=== PATIENT | male | born 1940 | race Caucasian/White ===

== ENCOUNTER 2018-08-03 06:42 | Day surgery (SDC) | payer MEDICARE, OTHER, SELFPAY ==
--- NOTE | 2018-08-02 15:19 | W.PIPPEYE ---
History of Present Illness Chief Complaint: Progressive decreased vision, right eye Narrative: The patient is a 78-year-old gentleman with history of non-exudative macular degeneration and cataracts who has noted progressive decreased vision in both eyes. 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 On examination he was noted to have significant bilateral nuclear and cortical cataracts as well as nonexudative macular degeneration. Best corrected visual acuity was 20/60 OD, 20/70 OS. The option of cataract surgery was offered to the patient and he wished to proceed, understanding that postoperative visual acuity will be limited by the presence of his pre-existing maculopathy. NOTE: The Chief Complaint, HPI, Past Medical History, Past Surgical History, Family History, Social History, Medications, and complete Ophthalmic Exam with detailed Assessment and Plan have already been documented in the patient's outpatient ophthalmic record and/or in the Primary Care Provider's pre-op history and physical, and are not covered again in detail here. [facility] Medical History Bipolar disorder CIRILO (obstructive sleep apnea) PTSD (post-traumatic stress disorder) Social History Smoking/Tobacco Use Status: Never Surgical History Colonoscopy - MAC (08/12/16) Meds Home Medications Medication Instructions Recorded Confirmed Type quetiapine [Seroquel] 100 mg PO HS 08/10/16 08/01/18 History lorazepam 2 tab PO .QAM, HS 10/02/17 08/01/18 History ropinirole 1 mg PO DAILY 08/01/18 08/01/18 History Allergies Allergy/AdvReac Type Severity Reaction Status Date / Time No Known Allergies Allergy Unverified 10/02/17 18:17 Exam OCULAR EXAM:: Visual acuity at distance: 20/60 OD, 20/70 OS Pupils: Normally reactive without afferent pupillary defect IOP: 16 OD 15 OS Extraocular Motility: Significant for an alternating exotropia Pertinent Slit Lamp Findings: Significant for pupils dilating to 7 mm OU. 3+ brunescent nuclear cataract is present each eye with 1+ cortical cataract. Dilated Funduscopic Examination: Disc cupping is 0.3 OU with ngozi-papillary atrophy. Both macula does show evidence of fine drusen with pigmentary clumping. Peripheral retina and vitreous is normal. BRIGHTNESS ACUITY TESTING (BAT):: Off 20/60, right eye Low: 20/200 Medium: 20/400 High: Less than 20/400 Assessment and Plan (1) Cortical cataract of right eye: Current visit: No Status: Acute Assessment: Visually significant cataract, right eye. Plan: Cataract extraction with intraocular lens implantation, right eye (2) Nuclear sclerotic cataract of right eye: Current visit: No Status: Acute Assessment: Visually significant cataract, right eye. Plan: Cataract extraction with intraocular lens implantation, right eye Note: NOTE:: The patient also has a history of myopia, and desires to remain myopic after cataract surgery. He would like to be able to read without glasses after cataract surgery. The patient has also been made aware that postoperative visual acuity will likely be limited by the presence of pre-existing macular degeneration. The details of the planned surgery, including the risks, indications,limitations,expectations,outcome and possible complications were explained to the patient. The patient understands the complications including, but not limited to: infection, hemorrhage, posterior dislocation of the lens or nuclear fragments which may require the intervention of a vitreoretinal surgeon, possible loss of the eye, or from anesthetic complications. The patient has been made aware of the option of not having surgery, that vision following surgery may not be equal to that prior to surgery, and that the planned surgery may not achieve the intended results. Following this discussion, which the patient appeared to understand, the patient wishes to proceed with cataract surgery with lens implantation of the affected eye to improve and maximize vision.
--- NOTE | 2018-08-02 15:27 | POEE_ITS ---
History of Present Illness Chief Complaint: Progressive decreased vision, right eye Narrative: The patient is a 78-year-old gentleman with history of non-exudative macular degeneration and cataracts who has noted progressive decreased vision in both eyes. 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 On examination he was noted to have significant bilateral nuclear and cortical cataracts as well as nonexudative macular degeneration. Best corrected visual acuity was 20/60 OD, 20/70 OS. The option of cataract surgery was offered to the patient and he wished to proceed, understanding that postoperative visual acuity will be limited by the presence of his pre-existing maculopathy. NOTE: The Chief Complaint, HPI, Past Medical History, Past Surgical History, Family History, Social History, Medications, and complete Ophthalmic Exam with detailed Assessment and Plan have already been documented in the patient's outpatient ophthalmic record and/or in the Primary Care Provider's pre-op history and physical, and are not covered again in detail here. [facility] Medical History Bipolar disorder CIRILO (obstructive sleep apnea) PTSD (post-traumatic stress disorder) Social History Smoking/Tobacco Use Status: Never Surgical History Colonoscopy - MAC (08/12/16) Meds Home Medications Medication Instructions Recorded Confirmed Type quetiapine [Seroquel] 100 mg PO HS 08/10/16 08/01/18 History lorazepam 2 tab PO .QAM, HS 10/02/17 08/01/18 History ropinirole 1 mg PO DAILY 08/01/18 08/01/18 History Allergies Allergy/AdvReac Type Severity Reaction Status Date / Time No Known Allergies Allergy Unverified 10/02/17 18:17 Exam OCULAR EXAM:: Visual acuity at distance: 20/60 OD, 20/70 OS Pupils: Normally reactive without afferent pupillary defect IOP: 16 OD 15 OS Extraocular Motility: Significant for an alternating exotropia Pertinent Slit Lamp Findings: Significant for pupils dilating to 7 mm OU. 3+ brunescent nuclear cataract is present each eye with 1+ cortical cataract. Dilated Funduscopic Examination: Disc cupping is 0.3 OU with ngozi-papillary atrophy. Both macula does show evidence of fine drusen with pigmentary clumping. Peripheral retina and vitreous is normal. BRIGHTNESS ACUITY TESTING (BAT):: Off 20/60, right eye Low: 20/200 Medium: 20/400 High: Less than 20/400 Assessment and Plan (1) Cortical cataract of right eye: Current visit: No Status: Acute Assessment: Visually significant cataract, right eye. Plan: Cataract extraction with intraocular lens implantation, right eye (2) Nuclear sclerotic cataract of right eye: Current visit: No Status: Acute Assessment: Visually significant cataract, right eye. Plan: Cataract extraction with intraocular lens implantation, right eye Note: NOTE:: The patient also has a history of myopia, and desires to remain myopic after cataract surgery. He would like to be able to read without glasses after cataract surgery. The patient has also been made aware that postoperative visual acuity will likely be limited by the presence of pre-existing macular degeneration. The details of the planned surgery, including the risks, indications,limitations ,expectations,outcome and possible complications were explained to the patient. The patient understands the complications including, but not limited to: infection, hemorrhage, posterior dislocation of the lens or nuclear fragments which may require the intervention of a vitreoretinal surgeon, possible loss of the eye, or from anesthetic complications. The patient has been made aware of the option of not having surgery, that vision following surgery may not be equal to that prior to surgery, and that the planned surgery may not achieve the intended results. Following this discussion, which the patient appeared to understand, the patient wishes to proceed with cataract surgery with lens implantation of the affected eye to improve and maximize vision.
[2018-08-03 06:58] VITALS: BP 113/82; PULSE 82; RESP 16; TEMP 36.6; O2SAT 100
[2018-08-03] MEDS: Lidocaine 2% Jelly 6 ML SYR (08:18)
[2018-08-03] MEDS: Lidocaine 1% Pres-Free 5 ML VIAL (08:27)
[2018-08-03] MEDS: Balanced Salt Soln.-PLUS 500 ML BAG (08:27)
[2018-08-03] MEDS: Povidone-Iodine Ophth 30 ML BTL (08:44)
--- NOTE | 2018-08-03 08:50 | W.PM.DSUDISC ---
Discharge Plan Disposition Patient Disposition: HOME Condition: Good Discharge Details Reason For Visit: CATARACT OD Attending Provider: Seth Pratt Primary Care Provider: Sybil Carrera Home Meds and New Rx's Prescriptions: No Action quetiapine [Seroquel] 100 MG tablet 100 mg PO HS RF: 0 lorazepam 0.5 MG tablet 2 tab PO .QAM, HS RF: 0 ropinirole 1 mg Tablet 1 mg PO DAILY RF: 0 Discharge Instructions Stand Alone Forms: Post-op Topical Cataract, Lawanda Moreno (DSU) Activity:: Activity as Tolerated Remove Dressings/Wound Care:: Do Not Remove Shower/Bathe:: 48 hours Diet:: As Tolerated Discharge Orders Discharge Orders: Discharge Order (Routine); Ordered 08/03/18 Ordered By: Seth Pratt Discharge Data Discharge Date/Time-TO BE ENTERED AT DEPARTURE: 08/03/18 08:50 DS: Diagnosis Discharge Diagnosis (1) Cortical cataract of right eye: Status: Resolved (2) Nuclear sclerotic cataract of right eye: Status: Resolved
--- NOTE | 2018-08-03 16:30 | W.PM.OP ---
Date of service: 08/03/18 Operative Note Date of procedure: 08/03/18 Pre-op diagnosis: Cataract, right eye Post-op diagnosis: same Procedure: Cataract extraction using phacoemulsification with intraocular lens implant, right eye Surgeon: Seth Pratt Anesthesia: MAC and local (sub-tenon's anesthetic infiltration) Pathology: none sent Complications: None Patient was transported to: same day Patient's condition: stable Implants: Rohit and Rohit / [employer] Tecnis [id number] Indications: Painless progressive vision loss due to cataract, right eye Procedure Description: PREOPERATIVE DIAGNOSIS: Nuclear/cortical cataract, right eye, symptomatic POSTOPERATIVE DIAGNOSIS: Same OPERATION: Cataract extraction using phacoemulsification with posterior chamber intraocular lens implant, right eye. IOL: IOL Master Barber/Model: [employer] Tecnis ZCB00 IOL Power: +17.0 diopters IOL Serial Number: [id number] Optic Diameter: 6.0 mm Haptic/Overall Diameter: 13.0 mm PHACO INFO: [employer] [place] [employer] Vision System with OZil and Active Fluidics Cumulative Dispersed Energy (CDE): 18.33 seconds SURGEON: Seth Pratt MD, FLAVIO ANESTHESIA: Monitored Anesthesia Care (MAC), with local sub-tenon's anesthetic infiltration COMPLICATIONS: None SPECIMENS: None INDICATIONS FOR PROCEDURE: The patient is a 78 year old gentleman with history of nonexudative macular degeneration OU as well as myopia. He has developed significant bilateral nuclear cataracts along with cortical cataracts in both eyes. He desires cataract surgery and attempt to improve and maximize his vision, understanding that postoperative visual acuity will be limited by the presence of his pre-existing maculopathy. PROCEDURE: The correct surgical eye was identified and marked as the right eye and the pupil was dilated in the preoperative area using mydriatics, cycloplegics, and NSAIDS (except in aspirin allergic patients). The dilated pupil size was 7.0 mm. Oral sedation was administered in the form of an Imprimis MKO Melt (midazolam 3mg/ketamine 25mg/ondansetron 2mg). The patient was brought to the operating room where cardiopulmonary monitoring was instituted and surgical time-out was performed, confirming the correct operative eye and IOL power. Topical anesthesia was administered and ophthalmic povidone-iodine 5% was instilled into the conjunctival fornices. The ngozi-ocular area was prepped with Betadine 10% solution and draped in the usual sterile fashion for intraocular surgery. Steri-strips were used to cover the lashes and lid margins and an adhesive eye drape was placed. Care was taken to isolate the lashes and lid margins under the Steri-strips and adhesive eye drape. A lid speculum was placed between the lids of the operative eye and the Albertina-Allison operating microscope was swung into place. Cale scissors were then used to make a conjunctival buttonhole approximately 6mm posterior to the limbus in the inferonasal quadrant. Blunt dissection was carried out to expose bare sclera, and a blunt-tipped sub-tenon?s anesthesia cannula was introduced and passed posteriorly along the globe where non-preserved plain lidocaine was injected into posterior sub-Tenon?s space. A sideport knife was used to make a paracentesis port at the 7 o'clock position. Healon GV was used to fill the anterior chamber.. A 2.4mm keratome knife was used to create a half-thickness groove at the limbus and then to construct a three-plane near-clear corneal tunnel extending 2.0mm into clear cornea at the 10 o'clock position. A flap was raised on the anterior capsule and capsulorhexis forceps were used to complete a continuous curvilinear capsulorhexis of 5.0 mm. Balanced salt solution was then used to perform cortical cleaving hydrodissection and nuclear hydrodelineation until the lens could be freely rotated within the capsular bag. The lens nucleus was then disassembled and removed within the capsular bag and iris plane using phacoemulsification. Residual cortical material was removed using the 45-degree angled silicone I/A tip with 0.3mm port. The posterior capsule was carefully polished to remove as much residual lens epithelial cells as safely possible. The capsular bag was then inflated and the anterior chamber deepened with viscoelastic. The lens implant described above was inserted into the capsular bag using the [employer] [place] Injector. A Kuglen hook was used to dial the IOL into position. Residual viscoelastic was then removed using the I/A handpiece, the incisions were stromally hydrated, and the anterior chamber was reformed using BSS. . Then 0.4cc of moxifloxacin 1.5mg/ml were injected into the capsular bag and anterior chamber. The lens implant was noted to center nicely within the capsular bag. The incisions were checked with a Weck spear and found to be secure. Several drops of ophthalmic povidone-iodine 5% were then applied to the eye followed by two drops of topical antibiotic. A clear plastic eye shield was placed on the eye. The patient was then returned to Same Day Surgery in stable condition.
--- NOTE | 2018-08-03 16:33 | ROE_ITS ---
Date of service: 08/03/18 Operative Note Date of procedure: 08/03/18 Pre-op diagnosis: Cataract, right eye Post-op diagnosis: same Procedure: Cataract extraction using phacoemulsification with intraocular lens implant, right eye Surgeon: Seth Pratt Anesthesia: MAC and local (sub-tenon's anesthetic infiltration) Pathology: none sent Complications: None Patient was transported to: same day Patient's condition: stable Implants: Rohit and Rohit / [employer] Tecnis [id number] Indications: Painless progressive vision loss due to cataract, right eye Procedure Description: PREOPERATIVE DIAGNOSIS: Nuclear/cortical cataract, right eye, symptomatic POSTOPERATIVE DIAGNOSIS: Same OPERATION: Cataract extraction using phacoemulsification with posterior chamber intraocular lens implant, right eye. IOL: IOL School Occupational Therapist/Model: [employer] Tecnis ZCB00 IOL Power: +17.0 diopters IOL Serial Number: [id number] Optic Diameter: 6.0 mm Haptic/Overall Diameter: 13.0 mm PHACO INFO: [employer] Vision System with OZil and Active Fluidics Cumulative Dispersed Energy (CDE): 18.33 seconds SURGEON: Seth Pratt MD, FLAVIO ANESTHESIA: Monitored Anesthesia Care (MAC), with local sub-tenon's anesthetic infiltration COMPLICATIONS: None SPECIMENS: None INDICATIONS FOR PROCEDURE: The patient is a 78 year old gentleman with history of nonexudative macular degeneration OU as well as myopia. He has developed significant bilateral nuclear cataracts along with cortical cataracts in both eyes. He desires cataract surgery and attempt to improve and maximize his vision, understanding that postoperative visual acuity will be limited by the presence of his pre-existing maculopathy. PROCEDURE: The correct surgical eye was identified and marked as the right eye and the pupil was dilated in the preoperative area using mydriatics, cycloplegics, and NSAIDS (except in aspirin allergic patients). The dilated pupil size was 7.0 mm. Oral sedation was administered in the form of an Imprimis MKO Melt (midazolam 3mg/ketamine 25mg/ondansetron 2mg). The patient was brought to the operating room where cardiopulmonary monitoring was instituted and surgical time-out was performed, confirming the correct operative eye and IOL power. Topical anesthesia was administered and ophthalmic povidone-iodine 5% was instilled into the conjunctival fornices. The ngozi-ocular area was prepped with Betadine 10% solution and draped in the usual sterile fashion for intraocular surgery. Steri-strips were used to cover the lashes and lid margins and an adhesive eye drape was placed. Care was taken to isolate the lashes and lid margins under the Steri-strips and adhesive eye drape. A lid speculum was placed between the lids of the operative eye and the Albertina-Allison operating microscope was swung into place. Cale scissors were then used to make a conjunctival buttonhole approximately 6mm posterior to the limbus in the inferonasal quadrant. Blunt dissection was carried out to expose bare sclera, and a blunt-tipped sub-tenon? s anesthesia cannula was introduced and passed posteriorly along the globe where non-preserved plain lidocaine was injected into posterior sub-Tenon?s space. A sideport knife was used to make a paracentesis port at the 7 o'clock position. Healon GV was used to fill the anterior chamber.. A 2.4mm keratome knife was used to create a half-thickness groove at the limbus and then to construct a three-plane near-clear corneal tunnel extending 2.0mm into clear cornea at the 10 o'clock position. A flap was raised on the anterior capsule and capsulorhexis forceps were used to complete a continuous curvilinear capsulorhexis of 5.0 mm. Balanced salt solution was then used to perform cortical cleaving hydrodissection and nuclear hydrodelineation until the lens could be freely rotated within the capsular bag. The lens nucleus was then disassembled and removed within the capsular bag and iris plane using phacoemulsification. Residual cortical material was removed using the 45-degree angled silicone I/A tip with 0.3mm port. The posterior capsule was carefully polished to remove as much residual lens epithelial cells as safely possible. The capsular bag was then inflated and the anterior chamber deepened with viscoelastic. The lens implant described above was inserted into the capsular bag using the [employer] [place] Injector. A Kuglen hook was used to dial the IOL into position. Residual viscoelastic was then removed using the I/A handpiece, the incisions were stromally hydrated, and the anterior chamber was reformed using BSS. . Then 0.4cc of moxifloxacin 1.5mg/ml were injected into the capsular bag and anterior chamber. The lens implant was noted to center nicely within the capsular bag. The incisions were checked with a Weck spear and found to be secure. Several drops of ophthalmic povidone-iodine 5% were then applied to the eye followed by two drops of topical antibiotic. A clear plastic eye shield was placed on the eye. The patient was then returned to Same Day Surgery in stable condition.
== END 2018-08-03 09:15 | disposition home or self-care (01) ==
LOC: SUR 06:42
PROVIDERS: PCP Nurse Practitioner Family; Visit Provider Ophthalmology
PROC: (CPT 66984; principal; 2018-08-03 08:25)
DX: H25.11 Age-related nuclear cataract, right eye (principal); H25.011 Cortical age-related cataract, right eye
CPT/HCPCS: 66984; V2632

== ENCOUNTER 2018-08-17 06:44 | Day surgery (SDC) | payer MEDICARE, OTHER, SELFPAY ==
--- NOTE | 2018-08-16 07:37 | W.PIPPEYE ---
History of Present Illness Chief Complaint: Progressive decreased vision, left eye Narrative: Patient is a 78 year old gentleman who originally presented with complaints of progressive decreased vision in both eyes at both distance and near. He has a history of early macular degeneration in both eyes as well as a history of myopia. He was noted to have significant bilateral nuclear and cortical cataracts with visual acuity of 20/100 in each eye. The option of cataract surgery was offered to the patient and he wished to proceed. He desired to remain nearsighted after surgery so that he can continue to read without glasses. He underwent cataract surgery in the right eye on 07/03/2018. Postoperatively he has regained best corrected distance vision of 20/20 in the right eye with good near vision. He now presents for cataract surgery in the left eye. NOTE: The Chief Complaint, HPI, Past Medical History, Past Surgical History, Family History, Social History, Medications, and complete Ophthalmic Exam with detailed Assessment and Plan have already been documented in the patient's outpatient ophthalmic record and are not covered again in detail here. [facility] Medical History Bipolar disorder CIRILO (obstructive sleep apnea) PTSD (post-traumatic stress disorder) Social History Smoking/Tobacco Use Status: Never Surgical History Colonoscopy - MAC (08/12/16) Meds Home Medications Medication Instructions Recorded Confirmed Type quetiapine [Seroquel] 100 mg PO HS 08/10/16 08/03/18 History lorazepam 2 tab PO .QAM, HS 10/02/17 08/03/18 History ropinirole 1 mg PO DAILY 08/01/18 08/01/18 History Allergies Allergy/AdvReac Type Severity Reaction Status Date / Time No Known Allergies Allergy Unverified 08/03/18 06:56 Exam OCULAR EXAM:: Visual acuity at distance: Best corrected 20/20 right eye, 20/100 left eye Pupils: Pupils equal, round, and reactive without afferent pupillary defect IOP: 16 OD, 15 OS Extraocular Motility: Significant for an alternating exotropia Pertinent Slit Lamp Findings: Significant for a well-positioned PCIOL OD with clear posterior capsule. Pupils dilate to 7 mm OU. 3+ nuclear with 1+ cortical cataract is present OS. Dilated Funduscopic Examination: Disc cupping is 0.35 OU with ngozi-papillary atrophy. Both macula does show evidence of fine drusen and pigmentary clumping. Peripheral retina and vitreous is normal. BRIGHTNESS ACUITY TESTING (BAT):: Off left eye 20/100 Low: 20/200 Medium: 20/200 High: 20/400 Assessment and Plan (1) Cortical cataract of left eye: Current visit: No Status: Acute Assessment: Visually significant cataract, left eye. Plan: Cataract extraction with intraocular lens implantation, left eye (2) Nuclear sclerotic cataract of left eye: Current visit: No Status: Acute Assessment: Visually significant cataract, left eye. Plan: Cataract extraction with intraocular lens implantation, left eye (3) Age-related macular degeneration, dry, right eye: Current visit: No Status: Chronic (4) Age-related macular degeneration, dry, left eye: Current visit: No Status: Chronic Note: NOTE:: The details of the planned surgery, including the risks, indications,limitations,expectations,outcome and possible complications were explained to the patient. The patient understands the complications including, but not limited to: infection, hemorrhage, posterior dislocation of the lens or nuclear fragments which may require the intervention of a vitreoretinal surgeon, possible loss of the eye, or from anesthetic complications. The patient has been made aware of the option of not having surgery, that vision following surgery may not be equal to that prior to surgery, and that the planned surgery may not achieve the intended results. Following this discussion, which the patient appeared to understand, the patient wishes to proceed with cataract surgery with lens implantation of the affected eye to improve and maximize vision.
[2018-08-17 07:11] VITALS: BP 124/89; PULSE 77; RESP 16; TEMP 35.6; O2SAT 94
[2018-08-17] MEDS: Balanced Salt Soln.-PLUS 500 ML BAG (08:20)
[2018-08-17] MEDS: Povidone-Iodine Ophth 30 ML BTL (08:20)
[2018-08-17] MEDS: Lidocaine 1% Pres-Free 5 ML VIAL (08:20)
[2018-08-17] MEDS: Lidocaine 2% Jelly 6 ML SYR (08:20)
--- NOTE | 2018-08-17 08:54 | W.PM.DSUDISC ---
Discharge Plan Discharge Details Reason For Visit: CATARACT OS Attending Provider: Seth Pratt Primary Care Provider: Sybil Carrera Home Meds and New Rx's Prescriptions: No Action quetiapine [Seroquel] 100 MG tablet 50 mg PO HS RF: 0 lorazepam 0.5 MG tablet 2 tab PO .QAM, HS RF: 0 ropinirole 1 mg Tablet 1 mg PO DAILY RF: 0 Discharge Instructions Stand Alone Forms: Post-op Topical Cataract, Lawanda Moreno (DSU) DS: Diagnosis Discharge Diagnosis (1) Cortical cataract of left eye: Status: Resolved (2) Nuclear sclerotic cataract of left eye: Status: Resolved (3) Age-related macular degeneration, dry, right eye: Status: Chronic (4) Age-related macular degeneration, dry, left eye: Status: Chronic
--- NOTE | 2018-08-17 08:55 | W.PM.OP ---
Date of service: 08/17/18 Time of Service: 08:55 Operative Note DATE OF PROCEDURE: 08/17/18 PRE-OP DIAGNOSIS: Cataract, left eye POST-OP DIAGNOSIS: same PROCEDURE: Cataract extraction using phacoemulsification with intraocular lens implant, left eye SURGEON: Seth Pratt ANESTHESIA: MAC and local (sub-tenon's anesthetic infiltration) PATHOLOGY: none sent COMPLICATIONS: None Patient was transported to: same day Patient's condition: stable Implants: Rohit and Rohit / [employer] Tecnis [id number] Indications: Progressive decreased vision due to cataract, left eye Procedure Description: CATARACT SURGERY OPERATIVE REPORT PREOPERATIVE DIAGNOSIS: Nuclear/cortical cataract, left eye POSTOPERATIVE DIAGNOSIS: Same OPERATION: Cataract extraction using phacoemulsification with posterior chamber intraocular lens implant, left eye. IOL: IOL Petroleum Refinery Operator/Model: Rohit & Rohit / SAVANNA Tecnis [id number] IOL Power: +17.50 diopters IOL Serial Number: [id number] Optic Diameter: 6.0mm Haptic/Overall Diameter: 13.0mm PHACO INFO: JamesecoInsight Vision System with OZil and Active Fluidics Cumulative Dispersed Energy (CDE): 11.7 seconds SURGEON: Seth Pratt MD, FLAVIO ANESTHESIA: Monitored Anesthesia Care (MAC), with local sub-tenon's anesthetic infiltration COMPLICATIONS: None SPECIMENS: None INDICATIONS FOR PROCEDURE: The patient is a 78-year old gentleman with history of progressive decreased vision in both eyes who was noted to have dense bilateral nuclear and cortical cataracts. He also has a history of myopia and desires to remain myopic after cataract surgery. He also has macular degeneration in both eyes. He is Ardie undergone cataract surgery in the right eye and is doing well postoperatively. He now presents for cataract surgery in the left eye. PROCEDURE: The correct surgical eye was identified and marked as the left eye and the pupil was dilated in the preoperative area using mydriatics, cycloplegics, and NSAIDS (except in aspirin allergic patients). The dilated pupil size was 7.5mm. Oral sedation was administered in the form of an Imprimis MKO Melt (midazolam 3mg/ketamine 25mg/ondansetron 2mg). The patient was brought to the operating room where cardiopulmonary monitoring was instituted and surgical time-out was performed, confirming the correct operative eye and IOL power. Topical anesthesia was administered and ophthalmic povidone-iodine 5% was instilled into the conjunctival fornices. Lidocaine gel was applied to the cornea and the ngozi-ocular area was prepped with Betadine 10% solution and draped in the usual sterile fashion for intraocular surgery. Steri-strips were used to cover the lashes and lid margins and an adhesive eye drape was placed. Care was taken to isolate the lashes and lid margins under the Steri-strips and adhesive eye drape. A lid speculum was placed between the lids of the operative eye and the Albertina-Allison operating microscope was maneuvered into position. Cale scissors were then used to make a conjunctival buttonhole approximately 6mm posterior to the limbus in the inferonasal quadrant. Blunt dissection was carried out to expose bare sclera, and a blunt-tipped sub-tenon?s anesthesia cannula was introduced and passed posteriorly along the globe where non-preserved plain lidocaine was injected into posterior sub-Tenon?s space. A sideport knife was used to make a paracentesis port at the 12:00 postion and the anterior chamber was filled with Healon GV. A 2.4mm keratome knife was used to create a half-thickness groove at the limbus and then to construct a three-plane near-clear corneal tunnel extending 2.0mm into clear cornea at the 3:00 position. A flap was raised on the anterior capsule and capsulorhexis forceps were used to complete a continuous curvilinear capsulorhexis of 5.5mm. Balanced salt solution was then used to perform cortical cleaving hydrodissection and nuclear hydrodelineation until the lens could be freely rotated within the capsular bag. The lens nucleus was then disassembled and removed within the capsular bag and iris plane using phacoemulsification. Residual cortical material was removed using the 45-degree angled silicone I/A tip with 0.3mm port. The posterior capsule was carefully polished to remove as much residual lens epithelial cells as safely possible. The capsular bag was then inflated and the anterior chamber deepened with viscoelastic. The lens implant described above was inserted into the capsular bag using the SAVANNA [place] Injector. A Kuglen hook was used to dial the IOL into position. Residual viscoelastic was then removed first from posterior to the IOL, then from the anterior chamber using the I/A handpiece. The lens implant was noted to center nicely within the capsular bag. The incisions were stromally hydrated, and the anterior chamber was reformed using BSS. Then 0.4cc of moxifloxacin 1.5mg/ml were injected into the capsular bag and anterior chamber. The incisions were checked with a Weck spear and found to be secure. Several drops of ophthalmic povidone-iodine 5% were then applied to the eye followed by two drops of Imprimis combination moxifloxacin/dexamethasone solution. The drapes were removed and a clear plastic protective eye shield was placed over the eye. The patient was then returned to Same Day Surgery in stable condition.
--- NOTE | 2018-08-17 08:58 | ROE_ITS ---
Date of service: 08/17/18 Time of Service: 08:55 Operative Note DATE OF PROCEDURE: 08/17/18 PRE-OP DIAGNOSIS: Cataract, left eye POST-OP DIAGNOSIS: same PROCEDURE: Cataract extraction using phacoemulsification with intraocular lens implant, left eye SURGEON: Seth Pratt ANESTHESIA: MAC and local (sub-tenon's anesthetic infiltration) PATHOLOGY: none sent COMPLICATIONS: None Patient was transported to: same day Patient's condition: stable Implants: Rohit and Rohit / [employer] Tecnis [id number] Indications: Progressive decreased vision due to cataract, left eye Procedure Description: CATARACT SURGERY OPERATIVE REPORT PREOPERATIVE DIAGNOSIS: Nuclear/cortical cataract, left eye POSTOPERATIVE DIAGNOSIS: Same OPERATION: Cataract extraction using phacoemulsification with posterior chamber intraocular lens implant, left eye. IOL: IOL Machine Stonecutter/Model: Rohit & Rohit / SAVANNA Tecnis ZCB00 IOL Power: +17.50 diopters IOL Serial Number: [id number] Optic Diameter: 6.0mm Haptic/Overall Diameter: 13.0mm PHACO INFO: James[employer]igme Vision System with OZil and Active Fluidics Cumulative Dispersed Energy (CDE): 11.7 seconds SURGEON: Seth Pratt MD, FLAVIO ANESTHESIA: Monitored Anesthesia Care (MAC), with local sub-tenon's anesthetic infiltration COMPLICATIONS: None SPECIMENS: None INDICATIONS FOR PROCEDURE: The patient is a 78-year old gentleman with history of progressive decreased vision in both eyes who was noted to have dense bilateral nuclear and cortical cataracts. He also has a history of myopia and desires to remain myopic after cataract surgery. He also has macular degeneration in both eyes. He is Ardie undergone cataract surgery in the right eye and is doing well postoperatively. He now presents for cataract surgery in the left eye. PROCEDURE: The correct surgical eye was identified and marked as the left eye and the pupil was dilated in the preoperative area using mydriatics, cycloplegics, and NSAIDS (except in aspirin allergic patients). The dilated pupil size was 7.5mm. Oral sedation was administered in the form of an Imprimis MKO Melt (midazolam 3mg/ketamine 25mg/ondansetron 2mg). The patient was brought to the operating room where cardiopulmonary monitoring was instituted and surgical time-out was performed, confirming the correct operative eye and IOL power. Topical anesthesia was administered and ophthalmic povidone-iodine 5% was instilled into the conjunctival fornices. Lidocaine gel was applied to the cornea and the ngozi-ocular area was prepped with Betadine 10% solution and draped in the usual sterile fashion for intraocular surgery. Steri-strips were used to cover the lashes and lid margins and an adhesive eye drape was placed. Care was taken to isolate the lashes and lid margins under the Steri-strips and adhesive eye drape. A lid speculum was placed between the lids of the operative eye and the Albertina-Allison operating microscope was maneuvered into position. Cale scissors were then used to make a conjunctival buttonhole approximately 6mm posterior to the limbus in the inferonasal quadrant. Blunt dissection was carried out to expose bare sclera, and a blunt-tipped sub-tenon? s anesthesia cannula was introduced and passed posteriorly along the globe where non-preserved plain lidocaine was injected into posterior sub-Tenon?s space. A sideport knife was used to make a paracentesis port at the 12:00 postion and the anterior chamber was filled with Healon GV. A 2.4mm keratome knife was used to create a half-thickness groove at the limbus and then to construct a three-plane near-clear corneal tunnel extending 2.0mm into clear cornea at the 3:00 position. A flap was raised on the anterior capsule and capsulorhexis forceps were used to complete a continuous curvilinear capsulorhexis of 5.5mm. Balanced salt solution was then used to perform cortical cleaving hydrodissection and nuclear hydrodelineation until the lens could be freely rotated within the capsular bag. The lens nucleus was then disassembled and removed within the capsular bag and iris plane using phacoemulsification. Residual cortical material was removed using the 45-degree angled silicone I/A tip with 0.3mm port. The posterior capsule was carefully polished to remove as much residual lens epithelial cells as safely possible. The capsular bag was then inflated and the anterior chamber deepened with viscoelastic. The lens implant described above was inserted into the capsular bag using the SAVANNA [place] Injector. A Kuglen hook was used to dial the IOL into position. Residual viscoelastic was then removed first from posterior to the IOL, then from the anterior chamber using the I/A handpiece. The lens implant was noted to center nicely within the capsular bag. The incisions were stromally hydrated , and the anterior chamber was reformed using BSS. Then 0.4cc of moxifloxacin 1.5mg/ml were injected into the capsular bag and anterior chamber. The incisions were checked with a Weck spear and found to be secure. Several drops of ophthalmic povidone-iodine 5% were then applied to the eye followed by two drops of Imprimis combination moxifloxacin/dexamethasone solution. The drapes were removed and a clear plastic protective eye shield was placed over the eye. The patient was then returned to Same Day Surgery in stable condition.
[2018-08-17 09:45] VITALS: BP 123/75; PULSE 63; RESP 18; TEMP 36.7; O2SAT 95
== END 2018-08-17 09:50 | disposition home or self-care (01) ==
LOC: SUR 06:44
PROVIDERS: PCP Nurse Practitioner Family; Visit Provider Ophthalmology
PROC: (CPT 66984; principal; 2018-08-17 08:25)
DX: H25.812 Combined forms of age-related cataract, left eye (principal); H25.012 Cortical age-related cataract, left eye; H25.12 Age-related nuclear cataract, left eye; Z98.41 Cataract extraction status, right eye; Z96.1 Presence of intraocular lens
CPT/HCPCS: 66984; V2632

== ENCOUNTER 2018-12-31 13:13 | Outpatient (CLI) | payer MEDICARE, OTHER, SELFPAY ==
[2018-12-31 16:03] LABS: Vitamin D 25 Total 58.3 ng/ml (30-100)
== END 2018-12-31 13:33 ==
PROVIDERS: PCP Nurse Practitioner Family; Visit Provider Internal Medicine Sleep Medicine
DX: E55.9 Vitamin D deficiency, unspecified (principal)
CPT/HCPCS: 36415; 82306

== ENCOUNTER 2019-03-05 10:17 | Outpatient (REF) | payer MEDICARE, OTHER, SELFPAY ==
[2019-03-05 12:37] LABS: Anion Gap 9.5 mmol/L (3-11); BUN 32 mg/dL (7-18); CO2 28.5 mmol/L (21.0-32.0); CREATININE 1.34 mg/dL (0.70-1.30); Calcium 9.2 mg/dL (8.5-10.1); Chloride 105 mmol/L (98-107); Estimated GFR 51.42 (mL/min/1.73m2); Glucose 103 mg/dL (70-100); Potassium 3.8 mmol/L (3.5-5.1); Sodium 143 mmol/L (136-145)
== END 2019-03-05 10:37 ==
LOC: NCHCN 10:17
PROVIDERS: PCP Nurse Practitioner Family; Visit Provider Nurse Practitioner Family
DX: N28.9 Disorder of kidney and ureter, unspecified (principal)
CPT/HCPCS: 80048

== ENCOUNTER 2019-09-03 11:28 | Outpatient (REF) | payer MEDICARE, OTHER, SELFPAY ==
[2019-09-03 13:09] LABS: Calculated LDL 87 mg/dL; Cholesterol 159 mg/dL (50-200); HDL Cholesterol 45 mg/dL (40-60); Triglyceride 139 mg/dL (30-150)
== END 2019-09-03 11:48 ==
LOC: NCHCN 11:28
PROVIDERS: PCP Nurse Practitioner Family; Visit Provider Nurse Practitioner Family
DX: R03.0 Elevated blood-pressure reading, without diagnosis of hypertension (principal); N28.9 Disorder of kidney and ureter, unspecified; G47.9 Sleep disorder, unspecified; Z13.6 Encounter for screening for cardiovascular disorders
CPT/HCPCS: 80061

== ENCOUNTER 2019-10-21 15:44 | Emergency (ER) | payer MEDICARE, OTHER, SELFPAY ==
[2019-10-21 15:45] VITALS: BP 145/95; PULSE 89; RESP 18; TEMP 36.7; O2SAT 97
--- NOTE | 2019-10-21 16:07 | W.ED.GENAD ---
Discharge Plan Disposition Patient Disposition: HOME Condition: Stable Discharge Details Chief Complaint: Anxiety Clinical Impression: Anxiety Primary Care Provider: Sybil Carrera ED Provider: Antony Chowdary Home Meds and New Rx's Prescriptions: New quetiapine [Seroquel] 50 mg tablet 50 mg PO QHS Qty: 7 RF: 0 lorazepam 2 mg tablet 2 mg PO QHS PRN (Reason: anxiety) Qty: 5 RF: 0 No Action quetiapine [Seroquel] 100 MG tablet 25 mg PO HS RF: 0 lorazepam 0.5 MG tablet 1 tab PO HS RF: 0 Discharge Instructions Instructions: Anxiety (ED) Additional Instructions: We will ask our care management team to get you a followup appointment in clinic in the next 7 days. Continue 50mg Seroquel and 2mg Ativan as prescribed. Add bedtime meditation and soothing environment to aid in sleep. Return for any emergent concnerns. Medical Decision Making 79yo physically healthy male here with his . He has had anxiety since traumatic [place] experiences and maintained on Ativan 2mg per day and Seroquel 50mg at night. Pending psychiatry followup. Here for anxiety that he has 4 days of Ativan remaining and also that 2x 25mg Seroquel not as effective as 50mg tab. Will refill 50mg seroquel, add 5 days ativan bridge and ask for followup in clinic. 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 Stable without evidence of physical illness, nor thoughts of harming himself or others. HPI General Mode of arrival: ambulatory. Date/Time Provider Initiated Documentation: 10/21/19 15:46. Limitations to Documentation: no limitations. Information obtained by: patient and family. History of Present Illness 79 year old M presents to the emergency department with the chief complaint of Anxiety of running out of ativan, described as mild, Quality is described as constant, Patient reports no radiation. Patient started experiencing this day(s) and it has been constant. No relieving factors improve symptom(s), No exacerbating factors reported . Patient notes no other symptoms.; denies chest pain, cough, fever/chills, headaches and loss of appetite. Patient did receive the following treatments prior to arrival, other (seroquel) Related Data Home Medications Medication Instructions Recorded Confirmed quetiapine [Seroquel] 25 mg PO HS 08/10/16 10/21/19 lorazepam 1 tab PO HS 10/02/17 10/21/19 lorazepam 2 mg PO QHS PRN #5 tab 10/21/19 quetiapine [Seroquel] 50 mg PO QHS #7 tab 10/21/19 Previous Rx's Medication Instructions Recorded lorazepam 2 mg PO QHS PRN #5 tab 10/21/19 quetiapine [Seroquel] 50 mg PO QHS #7 tab 10/21/19 Allergies Allergy/AdvReac Type Severity Reaction Status Date / Time No Known Allergies Allergy Unverified 10/21/19 15:55 General Stated Complaint: Anxiety MISAEL: 3 Review of Systems Narrative: 05/06 systems reviewed and otherwise negative [facility] Medical History Bipolar disorder CIRILO (obstructive sleep apnea) PTSD (post-traumatic stress disorder) Surgical History Colonoscopy - MAC (08/12/16) Social History Smoking/Tobacco Use Status: Never Alcohol Intake: never Drug use: Never Substance use type: does not use Do you feel safe at home: Yes Do you feel safe in your relationship?: Yes Exam Narrative Exam Narrative: GEN: awake, alert, oriented 3. Pleasant, well groomed, interactive, somewhat animated and anxious HEAD: Normocephalic, atraumatic ENT: Mucous membranes moist, oropharynx unremarkable, External ear exam unremarkable EYES: PERRL, EOMI NECK: Full ROM, no AMAURY, no menigismus CHEST/RESP: Nontender, clear to auscultation bilateral, no wheeze/rhonchi/rales CARDIOVASCULAR: RRR, no murmur, rub maco. 2+ Rad pulse bilateral ABDOMEN: Soft, nontender, no mass. +Bowel sounds EXT: Full ROM, no edema, no rash Neuro: Grossly normal neurologic exam, conversant, interactive. Psych: Speech fluent, slightly pressed at times, thoughts congruent, affect anxious. Course Vital Signs Vital signs: Vital Signs Temperature 36.7 C 10/21/19 15:45 Pulse 89 10/21/19 15:45 Respiratory Rate 18 10/21/19 15:45 Blood Pressure 145/95 H 10/21/19 15:45 Pulse Oximetry 97 10/21/19 15:45 Temperature 36.7 C 10/21/19 15:45 Temperature Source Skin 10/21/19 15:45 Pulse 89 10/21/19 15:45 Respiratory Rate 18 10/21/19 15:45 Blood Pressure 145/95 H 10/21/19 15:45 Blood Pressure Position Sitting 10/21/19 15:45 Pulse Oximetry 97 10/21/19 15:45 Oxygen Delivery Method Room Air 10/21/19 15:45 Oxygen Flow Rate 0 10/21/19 15:45 Pain Level 0 10/21/19 15:45 Comment 10/21/19 15:45
[2019-10-21] MEDS: LORazepam 1 MG TAB 2 MG PO (16:26)
[2019-10-21 16:30] VITALS: RESP 16
--- NOTE | 2019-10-21 17:10 | NUR.NOTE ---
Nursing Note: Faxed to PCP office a folllow up referral. Leanna Paz.
== END 2019-10-21 16:30 | disposition home or self-care (01) ==
PROVIDERS: Emergency Provider Emergency Medicine; PCP Nurse Practitioner Family
DX: F41.9 Anxiety disorder, unspecified (principal)
CPT/HCPCS: 99283

== ENCOUNTER 2019-10-22 08:22 | Emergency (ER) | payer MEDICARE, OTHER, SELFPAY ==
[2019-10-22 08:29] VITALS: BP 127/82; PULSE 111; TEMP 36.5; O2SAT 97
--- NOTE | 2019-10-22 08:35 | ED.GENADUL_ITS ---
Discharge Plan Disposition Patient Disposition: HOME Condition: Stable Discharge Details Chief Complaint: GenMedical Clinical Impression: Anxiety, Insomnia Primary Care Provider: Sybil Carrera ED Provider: Aracelis Tran Home Meds and New Rx's Prescriptions: New gabapentin 100 mg capsule 100 mg PO QHS PRN (Reason: sleep) Qty: 10 RF: 0 Continued lorazepam 0.5 MG tablet 1 tab PO HS RF: 0 quetiapine [Seroquel] 50 mg tablet 50 mg PO QHS Qty: 7 RF: 0 magnesium oxide 500 mg Capsule 500 mg PO DAILY RF: 0 fish,bora,flax oils-om3,6,9no1 [Dorothy 3-6-9 Complex] 400-400-400 mg Capsule 2 cap PO TID RF: 0 Discontinued quetiapine [Seroquel] 100 MG tablet 25 mg PO HS RF: 0 lorazepam 2 mg tablet 2 mg PO QHS PRN (Reason: anxiety) Qty: 5 RF: 0 Discharge Instructions Instructions: Insomnia (ED), Anxiety (ED) Additional Instructions: Drink plenty of fluids. Continue your 50 mg of Seroquel at night. Start taking the gabapentin at night along with the Seroquel. Do not take Lorazepam with the Seroquel and gabapentin at night. Take 1/2-1 tab of your lorazepam during the day as needed for anxiety. Follow-up with your scheduled appointment with psychiatry tomorrow morning at 8:30 AM. We have made an appointment for you with Sybil Carrera in the office on October 29 at 10 AM. Return to the emergency department if you develop any worsening or concerning symptoms. Discharge Data Discharge Physician: Aracelis Tran Medical Decision Making 79-year-old male with a history of bipolar, sleep apnea, PTSD with chronic difficulty with sleep on Seroquel and Ativan who presents with lack of sleep for the past 3 days. Patient states the Seroquel and Ativan has worked for him for years. He states his PCP Sybil Carrera recently decreased his Seroquel from 50mg to 25 mg. He states he is unsure how long he has been taking 25 mg. He initially states he has not slept for 3 days, but when asked further he states he has had difficulty sleeping for 5 years but states this has been worse for the past 3 days. He denies any acute medical complaints. He is also been seen by the sleep lab in the past. Heart rate tachycardic which I suspect is due to anxiety. Remainder vitals within normal limits. He has no acute findings on exam and appears nontoxic. He appears very anxious. Case discussed with PCP office Edilma Barton and she discussed with psych nurse practitioner who recommended gabapentin 100 mg nightly. Will have patient hold on Ativan at night and only take the Seroquel and gabapentin. Patient has a follow-up with the psych nurse practitioner in the next several weeks. Patient was made an appointment at [facility] for MondayOct 29 and 10am. Edilma also stated that there is a walk-in clinic there and patient can be seen by nurse practitioner tomorrow if needed. Just prior to discharge, patient states he received a call from the primary office stating he has an appointment with psychiatry there tomorrow at 8:30 AM. HPI General Mode of arrival: ambulatory . Date/Time Provider Initiated Documentation: 10/22/19 08:26 . Limitations to Documentation: no limitations . Information obtained by: patient . HPI Narrative: Patient is an 79-year-old male with a history of bipolar disorder, sleep apnea and PTSD presents with inability to sleep for the past 3 days. Patient was seen here yesterday for the same complaint and his Seroquel was increased from 25 nightly to 50 nightly and his Lorazepam 2 mg nightly as needed was refilled with 5 tabs. Patient states this did not help him yesterday. He states his family is visiting for [facility] this week and he is nervous about not sleeping and how he is going to act. He denies any suicidal or homicidal ideations, fever, headache, shortness of breath, chest pain, abdominal pain, vomiting or diarrhea. Related Data Home Medications Medication Instructions Recorded Confirmed lorazepam 1 tab PO HS 10/02/17 10/22/19 quetiapine [Seroquel] 50 mg PO QHS #7 tab 10/21/19 10/22/19 fish,bora,flax oils-om3,6,9no1 2 cap PO TID 10/22/19 10/22/19 [Dorothy 3-6-9 Complex] gabapentin 100 mg PO QHS PRN #10 cap 10/22/19 magnesium oxide 500 mg PO DAILY 10/22/19 10/22/19 Previous Rx's Medication Instructions Recorded quetiapine [Seroquel] 50 mg PO QHS #7 tab 10/21/19 gabapentin 100 mg PO QHS PRN #10 cap 10/22/19 Allergies Allergy/AdvReac Type Severity Reaction Status Date / Time No Known Allergies Allergy Unverified 10/22/19 08:36 General MISAEL: 3 Review of Systems All systems reviewed & are unremarkable except as noted in HPI and below Constitutional Constitutional: Reports as per HPI, Denies chills and Denies fever(s) Eyes Eyes: Denies blurry vision ENT Ears, Nose, Mouth, and Throat: Denies dizziness, Denies sore throat and Denies throat swelling Cardiovascular Cardiovascular: Denies chest pain and Denies dyspnea Respiratory Respiratory: Denies cough and Denies dyspnea Gastrointestinal Gastrointestinal: Denies abdominal pain, Denies diarrhea and Denies vomiting Genitourinary Genitourinary: Denies hematuria and Denies dysuria Musculoskeletal Musculoskeletal: Denies back pain and Denies numbness Integumentary/Breasts Skin/Breast: Denies lesions and Denies rash Neurologic Neurologic: Denies dizziness, Denies focal weakness and Denies numbness Psychiatric Psychiatric: Reports abnormal sleep pattern and Reports anxiety Allergic/Immunologic Allergic/Immunologic: Denies throat swelling [facility] Medical History Bipolar disorder CIRILO (obstructive sleep apnea) PTSD (post-traumatic stress disorder) Surgical History Colonoscopy - MAC (08/12/16) Social History Smoking/Tobacco Use Status: Never Alcohol Intake: never Drug use: Never Substance use type: does not use Do you feel safe at home: Yes Do you feel safe in your relationship?: Yes Exam Const General: cooperative, anxious and disheveled HENMT Head: normal to inspection Face and sinus: normal facial exam Eyes General: appearance normal, both eyes and all related structures Pupils: PERRL EOM: EOM intact bilaterally Neck Neck: normal visual inspection and No submandibular swelling Lymphatic: no lymphadenopathy noted Chest Chest: normal inspection of the chest and no tenderness Resp Effort & Inspection: normal respiratory effort and able to speak in complete sentences Auscultation: clear to auscultation bilaterally Cardio Rate: tachycardic Rhythm: regular rhythm GI Inspection: normal to inspection Palpation: soft, not firm, not rigid and nontender Auscultation: normal bowel sounds Skin General skin exam: no rashes or lesions noted Neuro General: alert, awake and oriented x3 Cognition: normal cognition Speech: speech normal Motor: muscle tone normal throughout Sensory Exam: no sensory deficits noted Extrem General: normal to inspection, full ROM, normal capillary refill, no calf tenderness bilaterally and no edema Psych Appearance: disheveled Mental Status: mental status grossly normal Speech and Movement: pressured speech Mood: anxious mood Affect: anxious affect Attitude: cooperative Thought Content: normal Insight: insight good Judgment: judgment good
[2019-10-22 08:45] VITALS: RESP 18
[2019-10-22 09:52] VITALS: BP 121/79; PULSE 102; RESP 18; TEMP 36.5; O2SAT 97
== END 2019-10-22 09:50 | disposition home or self-care (01) ==
PROVIDERS: Emergency Provider Physician Assistant; PCP Nurse Practitioner Family
DX: G47.00 Insomnia, unspecified (principal); F41.9 Anxiety disorder, unspecified
CPT/HCPCS: 99283

== ENCOUNTER 2020-09-08 11:38 | Outpatient (REF) | payer MEDICARE, OTHER, SELFPAY ==
[2020-09-08 19:05] LABS: Anion Gap 9.2 mmol/L (3-11); BUN 24 mg/dL (7-18); CO2 28.8 mmol/L (21.0-32.0); CREATININE 1.39 mg/dL (0.70-1.30); Calculated LDL 109 mg/dL (<100); Chloride 107 mmol/L (98-107); Cholesterol 175 mg/dL (<200); Estimated GFR 49.04 (mL/min/1.73m2); Glucose 94 mg/dL (74-106); HDL Cholesterol 44 mg/dL (40-60); Potassium 4.4 mmol/L (3.5-5.1); Sodium 145 mmol/L (136-145); Triglyceride 113 mg/dL (<150)
== END 2020-09-08 11:58 ==
LOC: NCHCN 11:38
PROVIDERS: PCP Nurse Practitioner Family; Visit Provider Nurse Practitioner Family
DX: R79.89 Other specified abnormal findings of blood chemistry (principal); Z13.6 Encounter for screening for cardiovascular disorders
CPT/HCPCS: 80048; 80061; 85027

== ENCOUNTER 2020-10-08 11:52 | Outpatient (REF) | payer MEDICARE, OTHER, SELFPAY ==
[2020-10-08 18:52] LABS: TSH (W/Ref FT4) 2.33 uIU/mL (0.36-3.74)
[2020-10-08 19:31] LABS: Vitamin D 25 Total 84.4 ng/ml (30-100)
== END 2020-10-08 12:12 ==
LOC: NCHCN 11:52
PROVIDERS: PCP Nurse Practitioner Family; Visit Provider Nurse Practitioner Psychiatric/Mental Health
DX: F43.10 Post-traumatic stress disorder, unspecified (principal)
CPT/HCPCS: 82306; 84443

== ENCOUNTER 2021-09-02 08:23 | Outpatient (REF) | payer MEDICARE, OTHER, SELFPAY ==
[2021-09-02 15:17] LABS: HCT 40.6 % (40.0-50.0); HGB 13.3 g/dL (13.5-17.5); MCH 28.9 pg (27.0-33.0); MCHC 32.8 % (32.0-36.0); MCV 88.3 fL (80-95); MPV 9.8 fL (8.0-11.0); Platelet Count 218 10^3/uL (130-400); RDW 13.1 % (11.8-14.1); RDW-SD 42.4 fL
[2021-09-02 15:24] LABS: Anion Gap 7.7 mmol/L (3-11); BUN 22 mg/dL (7-18); CO2 29.3 mmol/L (21.0-32.0); CREATININE 1.4 mg/dL (0.70-1.30); Calcium 9.1 mg/dL (8.5-10.1); Calculated LDL 99 mg/dL (<100); Chloride 107 mmol/L (98-107); Cholesterol 167 mg/dL (<200); Estimated GFR 48.52 (mL/min/1.73m2); Glucose 96 mg/dL (74-106); HDL Cholesterol 47 mg/dL (40-60); Potassium 4.2 mmol/L (3.5-5.1); Sodium 144 mmol/L (136-145); Triglyceride 106 mg/dL (<150)
== END 2021-09-02 08:24 | disposition home or self-care (01) ==
LOC: NCHCN 08:23
PROVIDERS: PCP Nurse Practitioner Family; Visit Provider Nurse Practitioner Family
DX: N28.9 Disorder of kidney and ureter, unspecified (principal); Z13.220 Encounter for screening for lipoid disorders; Z00.00 Encounter for general adult medical examination without abnormal findings
CPT/HCPCS: 80048; 80061; 85027

== ENCOUNTER 2022-07-15 16:20 | Outpatient (REF) | payer MEDICARE, OTHER, SELFPAY ==
[2022-07-15 15:21] LABS: HCT 38.5 % (40.0-50.0); HGB 12.9 g/dL (13.5-17.5); MCH 29.1 pg (27.0-33.0); MCHC 33.5 % (32.0-36.0); MCV 87 fL (80-95); MPV 9.4 fL (8.0-11.0); Platelet Count 191 10^3/uL (130-400); RBC 4.43 10^6/uL (4.36-5.78); RDW 12.9 % (11.8-14.1); RDW-SD 40.5 fL; WBC 6.64 10^3/uL (4.4-10.8)
[2022-07-15 15:49] LABS: Anion Gap 9.5 mmol/L (3-11); CO2 28.5 mmol/L (21.0-32.0); Chloride 106 mmol/L (98-107); Sodium 144 mmol/L (136-145)
[2022-07-15 16:14] LABS: BUN 25 mg/dL (7-18); CREATININE 1.3 mg/dL (0.70-1.30); Calcium 9.1 mg/dL (8.5-10.1); Calculated LDL 90 mg/dL (<100); Cholesterol 169 mg/dL (<200); Estimated GFR 52.72 (mL/min/1.73m2); Glucose 97 mg/dL (74-106); HDL Cholesterol 47 mg/dL (40-60); Triglyceride 163 mg/dL (<150)
== END 2022-07-15 16:21 | disposition home or self-care (01) ==
LOC: NCHCN 16:20
PROVIDERS: PCP Nurse Practitioner Family; Visit Provider Nurse Practitioner Family
DX: U07.1 COVID-19 (principal); N18.30 Chronic kidney disease, stage 3 unspecified; G47.9 Sleep disorder, unspecified; Z13.220 Encounter for screening for lipoid disorders
CPT/HCPCS: 80048; 80061; 85027

== ENCOUNTER 2022-11-03 12:55 | Outpatient (REF) | payer MEDICARE, OTHER, SELFPAY ==
[2022-11-05 11:50] LABS: COVID-19 RT-PCR UVMMC Result Negative (Negative)
== END 2022-11-03 12:56 | disposition home or self-care (01) ==
LOC: NCHCN 12:55
PROVIDERS: PCP Nurse Practitioner Family; Visit Provider Physician Assistant Medical
DX: Z20.822 Contact with and (suspected) exposure to COVID-19 (principal); J02.9 Acute pharyngitis, unspecified
CPT/HCPCS: U0003

== ENCOUNTER → 2022-11-10 13:13 | Outpatient (CLI) | payer MEDICARE, OTHER, SELFPAY ==
--- NOTE | 2022-11-10 10:43 | DI.RAD_ITS ---
Exam(s) XR CHEST 2V PA LATERAL EXAM: XR CHEST 2V PA LATERAL CLINICAL HISTORY: COUGH, R05.8, ? PNEUMONIA VS CHF TECHNIQUE: 2D digital imaging was performed of the chest. Two images were obtained. PA and lateral views were obtained. COMPARISON: CR CHEST 2 VIEWS PA,LAT from 12/31/2017 FINDINGS: MEDIASTINUM: Normal. HEART: Normal. PULMONARY VASCULATURE: Normal. LUNGS: The lungs appear hyperinflated with flattened diaphragms suggesting underlying COPD. There is linear atelectasis or scarring in the lung bases. No focal consolidating infiltrates are present. PLEURAL SPACE: No pleural effusion or pneumothorax. BONE:Within normal limits for the patient's age. OTHER FINDINGS:Normal. IMPRESSION: 1. No acute pulmonary findings. 2. COPD and basilar scarring/atelectasis. DATA REPOSITORY: RADIATION DOSE DELIVERED:
== END ==
PROVIDERS: PCP Nurse Practitioner Family; Visit Provider Physician Assistant Medical
DX: J44.9 Chronic obstructive pulmonary disease, unspecified (principal); J98.11 Atelectasis
CPT/HCPCS: 71046

== ENCOUNTER 2022-11-25 00:35 | Outpatient (CLI) | payer MEDICARE, OTHER, SELFPAY ==
[2022-11-25] MEDS: Inhaler, Assist Device 1 EACH MC (14:49)
[2022-11-25] MEDS: Methacholine 100 MG VIAL IH (14:49)
[2022-11-25] MEDS: Albuterol HFA 18 GM 200 PUFF INH IH (14:49)
--- NOTE | 2022-11-29 12:53 | W.PFT ---
Date of service: 11/25/22 Time of Service: 13:03 Pulmonary Function Test Result Requesting Provider Sybil Carrera Indications: COPD Interpretation Spirometry: There is no airflow limitation. There was a 33% decrease in FEV1% with administration of 1.0mg/mL methacholine. Lung Volumes: Normal lung volumes. Diffusion Capacity: Normal diffusion. Airway Pressure: Normal airways resistance. Impression Normal pulmonary function testing with a positive methacholine challenge test. Clinical Correlation therefore is recommended.
== END 2022-11-25 00:36 | disposition home or self-care (01) ==
LOC: RT 00:35
PROVIDERS: PCP Nurse Practitioner Family; Visit Provider Nurse Practitioner Family
DX: J44.9 Chronic obstructive pulmonary disease, unspecified (principal); R06.09 Other forms of dyspnea; R06.2 Wheezing; R05.9 Cough, unspecified
CPT/HCPCS: 94060; 94070; 94726; 94729; 94010; J7674

== ENCOUNTER → 2023-10-10 00:32 | Outpatient (CLI) | payer MEDICARE, OTHER, SELFPAY ==
--- NOTE | 2023-10-10 | DI.RAD_ITS ---
Exam(s) XR CHEST 2V PA LATERAL EXAM: XR CHEST 2V PA LATERAL CLINICAL HISTORY: J45.20 Asthma,intermittent,mild TECHNIQUE: 2D digital imaging was performed. COMPARISON: CR XR CHEST 2V PA LATERAL from 11/10/2022 FINDINGS: HEART: Normal size. Aorta: Not dilated. PULMONARY VASCULATURE: Normal. LUNGS: Linear scarring at the lung bases. Lungs otherwise clear. PLEURAL SPACE: No pleural effusion or pneumothorax. BONE:Unremarkable for age. IMPRESSION: No acute abnormality. DATA REPOSITORY: RADIATION DOSE DELIVERED:
== END ==
PROVIDERS: PCP Nurse Practitioner Family; Visit Provider Physician Assistant
DX: J45.20 Mild intermittent asthma, uncomplicated (principal)
CPT/HCPCS: 71046

== ENCOUNTER 2024-04-01 12:31 | Outpatient (REF) | payer MEDICARE, OTHER, SELFPAY ==
[2024-04-01 15:43] LABS: HCT 40.5 % (40.0-50.0); MCH 28.9 pg (27.0-33.0); MCHC 32.1 % (32.0-36.0); MCV 90 fL (80-95); MPV 9.5 fL (8.0-11.0); Platelet Count 200 10^3/uL (130-400); RDW-SD 42.5 fL; WBC 7.53 10^3/uL (4.4-10.8)
[2024-04-01 16:19] LABS: ALT 22 U/L (16-63); AST 15 U/L (15-37); Albumin 4.4 g/dL (3.4-5.0); Alkaline Phosphatase 66 U/L (46-116); Anion Gap 10.6 mmol/L (3-11); BUN 28 mg/dL (7-18); Bilirubin, Total 0.6 mg/dL (0.2-1.0); CO2 29.4 mmol/L (21.0-32.0); CREATININE 1.4 mg/dL (0.70-1.30); Calcium 8.9 mg/dL (8.5-10.1); Chloride 109 mmol/L (98-107); Estimated GFR 49.56 (mL/min/1.73m2); Glucose 90 mg/dL (74-106); Sodium 149 mmol/L (136-145); Total Protein 7.2 g/dL (6.4-8.2)
== END 2024-04-01 12:32 | disposition home or self-care (01) ==
LOC: NCHCN 12:31
PROVIDERS: PCP Physician Assistant; Visit Provider Physician Assistant
DX: N18.30 Chronic kidney disease, stage 3 unspecified (principal); N28.89 Other specified disorders of kidney and ureter; F43.10 Post-traumatic stress disorder, unspecified
CPT/HCPCS: 80053; 85027

== ENCOUNTER 2025-04-04 14:47 | Outpatient (REF) | payer MEDICARE, OTHER, SELFPAY ==
[2025-04-04 16:29] LABS: Abs Immature Grans 0.01 10^3/uL (0.0-0.06); Absolute Basophil Count 0.08 10^3/uL (0.0-0.2); Absolute Eosinophil Count 0.42 10^3/uL (0.0-0.7); Absolute Lymphocyte Count 2.23 10^3/uL (1.2-3.4); Absolute Monocyte Count 0.85 10^3/uL (0.1-0.8); Absolute Neutrophil Count 4.25 10^3/uL (1.2-6.7); Eosinophils % 5.4 %; HCT 39.8 % (40.0-50.0); HGB 13.2 g/dL (13.5-17.5); Immature Grans % 0.1 %; Lymphocytes % 28.4 %; MCH 29.1 pg (27.0-33.0); MCHC 33.2 % (32.0-36.0); MCV 88 fL (80-95); MPV 9.5 fL (8.0-11.0); Monocytes % 10.8 %; Neutrophils % 54.3 %; Platelet Count 226 10^3/uL (130-400); RBC 4.53 10^6/uL (4.36-5.78); RDW 13.3 % (11.8-14.1); WBC 7.84 10^3/uL (4.4-10.8)
[2025-04-04 16:39] LABS: Anion Gap 6.2 mmol/L (3-11); BUN 31 mg/dL (7-18); CO2 29.8 mmol/L (21.0-32.0); CREATININE 1.5 mg/dL (0.70-1.30); Calcium 9.1 mg/dL (8.5-10.1); Chloride 108 mmol/L (98-107); Estimated GFR 45.34 (mL/min/1.73m2); Glucose 95 mg/dL (74-106); Potassium 4.6 mmol/L (3.5-5.1); Sodium 144 mmol/L (136-145)
== END 2025-04-04 14:48 | disposition home or self-care (01) ==
LOC: NCHCN 14:47
PROVIDERS: PCP Physician Assistant; Visit Provider Physician Assistant
DX: R03.0 Elevated blood-pressure reading, without diagnosis of hypertension (principal)
CPT/HCPCS: 80048; 85025

== ENCOUNTER → 2025-10-31 11:13 | Outpatient (CLI) | payer MEDICARE, OTHER, SELFPAY ==
--- NOTE | 2025-10-31 | DI.RAD_ITS ---
Exam(s) XR CHEST 2V PA LATERAL EXAM: XR CHEST 2V PA LATERAL CLINICAL HISTORY: J06.9 Acute upper respiratory infection. TECHNIQUE: 2D digital imaging was performed. COMPARISON: CR XR CHEST 2V PA LATERAL from 10/10/2023 FINDINGS: 2 views: Heart size is normal. The mediastinum is not widened. Some scarring in the lung bases again noted, unchanged from September 2023. No new infiltrates nor pleural effusions. No pulmonary edema. IMPRESSION: Bilateral chronic lung base scarring but no infiltrates nor pleural effusions and no evidence of pulmonary edema. DATA REPOSITORY: RADIATION DOSE DELIVERED:
== END ==
PROVIDERS: PCP Physician Assistant; Visit Provider Physician Assistant Medical
DX: J06.9 Acute upper respiratory infection, unspecified (principal); J84.10 Pulmonary fibrosis, unspecified
CPT/HCPCS: 71046